=== PATIENT | male | born 1965 | race Caucasian/White ===

== ENCOUNTER 2024-03-30 18:27 | Emergency (ER) | payer SELFPAY ==
[2024-03-30 18:32] VITALS: BP 141/91; PULSE 88; RESP 16; TEMP 36.6; O2SAT 97; BMI 22.3
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
[2024-03-30] MEDS: morphine 4 mg/mL SDV 1 mL IM (18:53)
[2024-03-30] MEDS: tetanus-dipt-pertussis 0.5 mL SDV IM (19:20)
[2024-03-30 19:29] VITALS: BP 163/139; PULSE 76; RESP 18; O2SAT 95
== END 2024-03-30 19:26 | disposition home or self-care (01) ==
PROVIDERS: Emergency Provider Physician Assistant
DX: T24.201A Burn of second degree of unspecified site of right lower limb, except ankle and foot, initial encounter (principal); T31.0 Burns involving less than 10% of body surface; X08.8XXA Exposure to other specified smoke, fire and flames, initial encounter; Z23 Encounter for immunization
CPT/HCPCS: 90715; 96372; 99284; J2270